=== PATIENT | male | born 1965 | race Caucasian/White ===

== ENCOUNTER 2020-09-05 07:29 | Emergency (ER) | payer OTHER ==
[~2020-09-05] VITALS: Ht 175.3 cm; Wt 86.6 kg
[2020-09-05 07:31] VITALS: BP 142/82
--- NOTE | 2020-09-05 07:37 | NUR ---
PT TAKEN TO BED 11.
--- NOTE | 2020-09-05 07:46 | NUR ---
55 Y/O M C/C UPPER ABDOMINAL DISCOMFORT SINCE SATURDAY. PER PT BELIEVES IT IS GAS PAIN RELATED WITH NO PREVIOUS HX. PASSING GAS AND BM WNL. APPEPITE POOR AND VOMITING. PT NKA. NO HX. NO RX. NO DIARREAH. SIDE RAIL X1.
--- NOTE | 2020-09-05 07:49 | NUR ---
ERMD AT BEDSIDE
[2020-09-05] MEDS ORDERED: ONDANSETRON 4 MG ODT PO ONE (08:00)
--- NOTE | 2020-09-05 08:10 | NUR ---
BLOOD DRAWN - RAINBOW CAPS / BLOOD CULTURES OBTAINED - TAKEN TO LAB
--- NOTE | 2020-09-05 08:19 | NUR ---
PT TAKEN TO RAD VIA WHEELCHAIR
[2020-09-05 08:38] LABS: BASOPHILS % (AUTO) 0.5 % (0.0-2.0); EOSINOPHILS # (AUTO) 0.1 K/uL (0-0.4); EOSINOPHILS % (AUTO) 1.6 % (0.0-4.0); HEMATOCRIT 36.7 % (36-52); HEMOGLOBIN 12.4 g/dL (12.0-18.0); LYMPHOCYTES # (AUTO) 1.1 K/uL (2.0-11.5); LYMPHOCYTES % (AUTO) 22.2 % (20.5-51.1); MEAN CORPUSCULAR HEMOGLOBIN 31 pg (27-31); MEAN CORPUSCULAR HGB CONC 34 g/dL (33-37); MEAN CORPUSCULAR VOLUME 90.6 fL (80-94); MONOCYTES # (AUTO) 0.4 K/uL (0.8-1.0); MONOCYTES % (AUTO) 8.3 % (1.7-9.3); NEUTROPHILS # (AUTO) 3.3 K/uL (1.8-7.7); NEUTROPHILS % (AUTO) 67.4 % (42.2-75.2); PLATELET COUNT (AUTO) 250 K/uL (140-450); RED BLOOD CELL COUNT(AUTO) 4.05 MIL/uL (4.20-6.10); RED CELL DISTRIBUTION WIDTH 14.3 % (11.6-13.7); WHITE BLOOD COUNT (AUTO) 4.9 K/uL (4.8-10.8)
--- NOTE | 2020-09-05 08:52 | NUR ---
PT RESTING IN BED, SIDE RAIL X1
[2020-09-05 08:56] LABS: ALBUMIN 3.6 g/dL (3.4-5.0); ANION GAP 11.1 (8-16); CARBON DIOXIDE 27.5 mmol/L (21-32); CREATININE 0.7 mg/dL (0.6-1.3); POTASSIUM 3.6 mmol/L (3.5-5.1); TOTAL BILIRUBIN 0.3 mg/dL (0.0-1.0)
[2020-09-05 09:25] VITALS: BP 138/78
--- NOTE | 2020-09-05 09:26 | NUR ---
Patient discharged with v/s stable. Written and verbal after care instructions given and explained. Patient alert, oriented and verbalized understanding of instructions. Ambulatory with steady gait. All questions addressed prior to discharge. ID band removed. Patient advised to follow up with PMD. Rx of ZOFRAN,MIRALAX given. Patient educated on indication of medication including possible reaction and side effects. Opportunity to ask questions provided and answered.
== END 2020-09-05 09:26 | disposition home or self-care (01) ==
LOC: MED 07:29
DX: R10.13 Epigastric pain (principal); R11.2 Nausea with vomiting, unspecified; K59.00 Constipation, unspecified
CPT/HCPCS: 36415; 74021; 76705; 80053; 81002; 83690; 85025; 99285; Q0092; Q0162